=== PATIENT | male | born 1965 | race Caucasian/White ===

== ENCOUNTER 2021-07-22 17:08 | Emergency (ER) | payer BC ==
[2021-07-22] MEDS ORDERED: cefTRIAXone 1 GM, Lidocaine 1% 2.1 ML IM ONE ×2 (17:47)
--- NOTE | 2021-07-22 17:53 | EDM.PDOC ---
ED HPI GENERAL MEDICAL PROBLEM - General Chief Complaint: Upper Extremity Injury/Pain Stated Complaint: BITE ON HAND Time Seen by Provider: 07/22/21 17:38 Source of Information: Reports: Patient History Limitations: Reports: No Limitations - History of Present Illness INITIAL COMMENTS - FREE TEXT/NARRATIVE: The patient presents with left index finger infection. The patient says this has been going on for a few days. He is not sure if he got bit by a spider or something. There was a white dot and he put a hole in it and drained some purulent drainage from it. He has no fever or chills. He is right handed. Onset: Gradual Duration: Day(s): Location: Reports: Upper Extremity, Left (index finger) Quality: Reports: Sharp Severity: Mild Improves with: Reports: None Worsens with: Reports: None Associated Symptoms: Reports: No Other Symptoms Left Finger-Index Pain Score (Numeric/FACES): 5 - Related Data Allergies Allergy/AdvReac Type Severity Reaction Status Date / Time narcotics. Allergy Other Uncoded 07/22/21 17:42 Home Meds: Home Meds Amphetamine/Dextroamphetamine [Adderall XR] 10 mg PO DAILY 07/22/21 [History] Testosterone [Androgel] 1.25 gm TD DAILY 07/22/21 [History] cephALEXin [Keflex] 500 mg PO QID #40 cap 07/22/21 [Rx] Review of Systems - Review of Systems Review Of Systems: See Below Constitutional: Reports: No Symptoms Eyes: Reports: No Symptoms Ears: Reports: No Symptoms Nose: Reports: No Symptoms Mouth/Throat: Reports: No Symptoms Respiratory: Reports: No Symptoms Cardiovascular: Reports: No Symptoms GI/Abdominal: Reports: No Symptoms Genitourinary: Reports: No Symptoms Musculoskeletal: Reports: Other (left index finger swelling and redness) ED EXAM, GENERAL - Physical Exam Exam: See Below Exam Limited By: No Limitations General Appearance: Alert, No Apparent Distress Ears: Normal External Exam Nose: Normal Inspection Head: Atraumatic, Normocephalic Neck: Normal Inspection Respiratory/Chest: No Respiratory Distress Extremities: Other (Edema and some erythema to the left index finger. This is proximal to the base of the nail. Good capillary refill and sensation distally.) Course - Vital Signs Last Recorded V/S: Last Vital Signs Temp 98.5 F 07/22/21 17:37 Pulse 70 07/22/21 17:37 Resp 18 07/22/21 17:37 BP 131/93 H 07/22/21 17:37 Pulse Ox 100 07/22/21 17:37 - Orders/Labs/Meds Orders: Active Orders 24 hr Category Date Time Status cefTRIAXone 1 GM withLidocaine 1% 2.1 ML IM Onetime Med 07/22/21 17:47 Ordered cefTRIAXone [Rocephin] 1 gm Lidocaine 1% [Xylocaine 1%] 2.1 ml IM ONETIME - Re-Assessments/Exams Free Text/Narrative Re-Assessment/Exam: 07/22/21 17:51 Ther is nothing to drain. I will give him a shot of rocephin 1 gram IM and get him on some keflex. Departure - Departure Time of Disposition: 17:55 Disposition: Home, Self-Care 01 Condition: Good Clinical Impression: Cellulitis of left index finger - Discharge Information *PRESCRIPTION DRUG MONITORING PROGRAM REVIEWED*: Not Applicable *COPY OF PRESCRIPTION DRUG MONITORING REPORT IN PATIENT ELIU: Not Applicable Prescriptions: cephALEXin [Keflex] 500 mg PO QID #40 cap Additional Instructions: Take the keflex 4 times per day for 10 days. Soak your finger in warm soapy water 2 times per day and apply antibiotic ointment after. Take tylenol or motrin for any fever or pain. Follow up with your doctor when you get home. Sepsis Event Note (ED) - Evaluation Sepsis Screening Result: No Definite Risk - Focused Exam Vital Signs: Vital Signs Temp Pulse Resp BP Pulse Ox 07/22/21 17:37 98.5 F 70 18 131/93 H 100 - My Orders Last 24 Hours: My Active Orders 07/22/21 17:47 cefTRIAXone 1 GM withLidocaine 1% 2.1 ML IM Onetime cefTRIAXone [Rocephin] 1 gm Lidocaine 1% [Xylocaine 1%] 2.1 ml IM ONETIME - Assessment/Plan Last 24 Hours: My Active Orders 07/22/21 17:47 cefTRIAXone 1 GM withLidocaine 1% 2.1 ML IM Onetime cefTRIAXone [Rocephin] 1 gm Lidocaine 1% [Xylocaine 1%] 2.1 ml IM ONETIME
== END 2021-07-22 18:05 | disposition home or self-care (01) ==
LOC: JD.ED 17:08
DX: L03.012 Cellulitis of left finger (principal); Z88.5 Allergy status to narcotic agent
CPT/HCPCS: 96372; 99283; J0696